=== PATIENT | male | born 1990 | race African-American/Black ===

== ENCOUNTER 2019-01-19 12:24 | Emergency (ER) | payer MEDICAID ==
[~2019-01-19] VITALS: Ht 193 cm; Wt 88.6 kg
[~2019-01-19 12:24] MED LIST: NOCURR
[2019-01-19 12:40] VITALS: BP 153/111
[2019-01-19] MEDS ORDERED: HYDROGEN PEROXIDE 118 ML SOLUTION TP ONE (12:45)
[2019-01-19] MEDS ORDERED: IBUPROFEN 600 MG TABLET PO ONE (12:45)
[2019-01-19] MEDS ORDERED: HYDROCODONE/ACETAMINOPHEN 5-325 MG TABLET PO ONE (12:45)
[2019-01-19] MEDS ORDERED: BACITRACIN 0.9 GM PACKET OINTMENT TP ONE (12:45)
[2019-01-19] MEDS ORDERED: CEPHALEXIN MONOHYDRATE 500 MG CAPSULE PO ONE (13:30)
== END 2019-01-19 14:20 | disposition home or self-care (01) ==
LOC: EMS 12:24
DX: S63.617A Unspecified sprain of left little finger, initial encounter (principal); S40.812A Abrasion of left upper arm, initial encounter; S70.212A Abrasion, left hip, initial encounter; S60.417A Abrasion of left little finger, initial encounter; F17.210 Nicotine dependence, cigarettes, uncomplicated; V23.4XXA Motorcycle driver injured in collision with car, pick-up truck or van in traffic accident, initial encounter; Y93.89 Activity, other specified; Y92.89 Other specified places as the place of occurrence of the external cause; Y99.8 Other external cause status
CPT/HCPCS: 29280